=== PATIENT | female | born 1960 | race Caucasian/White ===

== ENCOUNTER → 2017-02-10 | Outpatient (CLI) | payer MEDICARE ==
[~2017-02-10] VITALS: Ht 157.5 cm; Wt 91.0 kg
[2017-02-10] VITALS (8 sets, daily range): BP systolic 112–152; BP diastolic 60–98; PULSE 102–112
[~2017-02-10] MED LIST: ACIDOPHILIS PO; ALBUTEROL0.83 MG/ML IH; ASPIRIN E.C. 8181 MG PO; BREO IH; CINNAMON500 MG PO; CLARITIN 1010 MG/TAB PO; DALIRESP500 MCG PO; GLUCOPHAGE1000 MG PO; NEURONTIN300 MG/CAP PO; NEXIUM 40MG40 MG PO; PROAIR HFA0.09 MG/AC IH; RT SPIRIVA18 MCG IH
== END ==
LOC: COL.RAD 08:39
DX: R93.8 Abnormal findings on diagnostic imaging of other specified body structures (principal)
CPT/HCPCS: Q9967